=== PATIENT | female | born 1970 | race Caucasian/White ===

== ENCOUNTER → 2018-07-11 | Outpatient (CLI) | payer BC ==
[~2018-07-11] MED LIST: ACCOLATE10 MG PO; ANAPROX DS550 MG PO; AUGMENTIN 875 M1 TAB PO; BUSPAR5 MG PO; FLEXERIL10 MG PO; MOTRIN600 MG PO; PYRIDIUM100 MG PO
[2018-07-11 10:26] LABS: BILIRUBIN NEGATIVE (NEGATIVE); BLOOD 1+ (NEGATIVE); CLARITY SL CLOUDY (CLEAR); COLOR YELLOW (YELLOW); GLUCOSE NEGATIVE (NEGATIVE); KETONE NEGATIVE (NEGATIVE); LEUKO ESTERASE 1+ (NEGATIVE); NITRITE NEGATIVE (NEGATIVE); SPECIFIC GRAVITY 1.015 (1.005-1.030); UROBILINOGEN 0.2 E.U./dl (0.2-1.0)
[2018-07-11 10:34] LABS: BACTERIA 1+; EPITHELIAL CELLS TNTC; MUCOUS 3+; WBC TNTC wbc/hpf (0-5)
== END | disposition home or self-care (01) ==
LOC: LAB 09:34
PROVIDERS: Internal Medicine
DX: R82.71 Bacteriuria (principal)

== ENCOUNTER → 2018-08-01 | Outpatient (CLI) | payer BC | END | disposition home or self-care (01) | LOC: RAD 13:01 | DX: R07.81 Pleurodynia (principal); R05 Cough ==

== ENCOUNTER → 2019-01-26 | Outpatient (CLI) | payer BC ==
[2019-01-26 12:01] LABS: BILIRUBIN NEGATIVE (NEGATIVE); BLOOD 2+ (NEGATIVE); CLARITY SL CLOUDY (CLEAR); COLOR YELLOW (YELLOW); GLUCOSE NEGATIVE (NEGATIVE); KETONE NEGATIVE (NEGATIVE); LEUKO ESTERASE NEGATIVE (NEGATIVE); NITRITE NEGATIVE (NEGATIVE); SPECIFIC GRAVITY 1.015 (1.005-1.030); UROBILINOGEN 0.2 E.U./dl (0.2-1.0)
[2019-01-26 12:10] LABS: BASO % 0.9 % (0.0-1.0); EOS # 0.4 10*3/uL (0.0-0.4); EOS % 7.7 % (1.0-4.0); HEMATOCRIT 40.3 % (37.0-47.0); HEMOGLOBIN 13.1 g/dl (12.0-16.0); LYMPH # 1.5 10*3/uL (1.3-4.4); MEAN CELL VOLUME 92.2 fl (81.0-99.0); MEAN CORPUSCULAR HGB CONC 32.5 g/dl (33.0-37.0); MEAN PLATELET VOLUME 10.5 fl (9.6-12.3); MONO # 0.7 10*3/uL (0.1-1.0); MONO % 14.8 % (3.0-9.0); NEUT % 44.6 % (47.0-73.0); PLATELET COUNT AUTOMATED 178 10*3/uL (130-400); RED BLOOD COUNT 4.37 10*6/uL (4.10-5.10); RED CELL DISTRI WIDTH 12.8 % (0-14.5); WHITE BLOOD COUNT 4.5 10*3/uL (4.8-10.8)
[2019-01-26 12:11] LABS: BACTERIA TRACE; MUCOUS 2+; RBC TNTC rbc/hpf (0-2); WBC 0-2 wbc/hpf (0-5)
[2019-01-26 12:21] LABS: BUN 8 mg/dl (7-24); CHLORIDE 106 mmol/L (98-107); CREATININE 0.77 mg/dL (0.55-1.02); POTASSIUM 3.7 mmol/L (3.5-5.1); SODIUM 140 mmol/L (136-145)
== END | disposition home or self-care (01) ==
LOC: LAB 11:30
PROVIDERS: Internal Medicine
DX: R53.81 Other malaise (principal)

== ENCOUNTER → 2020-08-19 | Outpatient (CLI) | payer BC | END | disposition home or self-care (01) | LOC: LAB 12:05 | PROVIDERS: ATTEND Urology | DX: N20.0 Calculus of kidney (principal) ==

== ENCOUNTER → 2020-08-26 | Outpatient (CLI) | payer BC ==
[~2020-08-26] MED LIST changes: +FLOMAX0.4 MG PO; +METHOCARBAMOL500 M1 PO; +NAPROXEN250 MG PO; +PERCOCET 5-3251 EACH PO; +ZOFRAN4 MG PO
[2020-09-05 22:06] LABS: BUSHITE 2.32 ratio (0.00-3.00); CALCIUM OXALATE 2.94 ratio (0.00-6.00); CALCIUM, URINE 72.8 mg/24 hr (100.0-300.0); CALCIUM, URINE 9.1 mg/dL (Not Estab.); CITRIC ACID (CITRATE) 392 mg/24 hr (320-1240); CREATININE, URINE 105.5 mg/dL (Not Estab.); MAGNESIUM, URINE 4.5 mg/dL (Not Estab.); MONOSODIUM URATE 7.57 ratio (0.00-4.00); OSMOLALITY, URINE 714 (300-900); SODIUM, URINE 131 (39-258); SODIUM, URINE 164 mmol/L (Not Estab.); URIC ACID 0.37 ratio (0.00-1.20); pH 24 HR URINE 6.7 (.)
== END | disposition home or self-care (01) ==
LOC: LAB 13:52
PROVIDERS: ATTEND Urology
DX: N20.0 Calculus of kidney (principal)

== ENCOUNTER 2020-09-12 10:24 | Emergency (ER) | payer BC ==
[~2020-09-12] VITALS: Ht 160 cm; Wt 55.8 kg
[~2020-09-12 10:24] MED LIST changes: -FLOMAX0.4 MG PO; -METHOCARBAMOL500 M1 PO; -NAPROXEN250 MG PO; -PERCOCET 5-3251 EACH PO; -ZOFRAN4 MG PO
[2020-09-12 10:30] VITALS: BP 134/71
[2020-09-12 11:01] LABS: BILIRUBIN Negative (Negative); BLOOD 3+ (Negative); CLARITY Turbid (Clear); COLOR Yellow (Yellow); GLUCOSE Negative (Negative); KETONE Trace (Negative); LEUKO ESTERASE Trace (Negative); NITRITE Negative (Negative); PH 5.5 (4.5-8.0)
[2020-09-12 11:10] LABS: BACTERIA 2+; EPITHELIAL CELLS TNTC; MUCOUS TRACE; RBC TNTC rbc/hpf (0-2)
[2020-09-12 11:43] LABS: BASO # 0.1 10*3/uL (0.0-0.1); BASO % 0.6 % (0.0-1.0); EOS # 0.1 10*3/uL (0.0-0.4); HEMATOCRIT 40.2 % (37.0-47.0); LYMPH % 11.7 % (27.0-41.0); MEAN CELL VOLUME 91.2 fl (81.0-99.0); MEAN CORPUSCULAR HGB 29.3 pg (27.0-31.0); MEAN CORPUSCULAR HGB CONC 32.1 g/dl (33.0-37.0); MEAN PLATELET VOLUME 10.4 fl (9.6-12.3); MONO # 0.5 10*3/uL (0.1-1.0); MONO % 5.8 % (3.0-9.0); NEUT # 6.6 10*3/uL (2.3-7.9); NEUT % 80.7 % (47.0-73.0); PLATELET COUNT AUTOMATED 176 10*3/uL (130-400); RED BLOOD COUNT 4.41 10*6/uL (4.10-5.10); RED CELL DISTRI WIDTH 12.4 % (0-14.5); WHITE BLOOD COUNT 8.2 10*3/uL (4.8-10.8)
[2020-09-12 11:54] LABS: BUN 11 mg/dl (7-24); CHLORIDE 106 mmol/L (98-107); CREATININE 0.77 mg/dL (0.55-1.02); POTASSIUM 3.5 mmol/L (3.5-5.1); SODIUM 135 mmol/L (136-145)
[2020-09-12] MEDS ORDERED: PERCOCET 5-3251 EACH PO ×2 (14:35→15:26)
[2020-09-12] MEDS ORDERED: FLOMAX0.4 MG PO ×2 (14:35→15:25)
[2020-09-12] MEDS ORDERED: ZOFRAN4 MG PO (14:35)
== END 2020-09-12 14:50 | disposition home or self-care (01) ==
LOC: ED 10:24
PROVIDERS: Internal Medicine
DX: N13.4 Hydroureter (principal); N20.0 Calculus of kidney

== ENCOUNTER 2020-10-02 01:34 | Emergency (ER) | payer OTHER, BC ==
[~2020-10-02] VITALS: Ht 154.9 cm; Wt 64.0 kg
[~2020-10-02 01:34] MED LIST changes: +FLOMAX0.4 MG PO; +PERCOCET 5-3251 EACH PO; +ZOFRAN4 MG PO
[2020-10-02 01:45] VITALS: BP 132/86
[2020-10-02] MEDS ORDERED: NAPROXEN250 MG PO (02:55)
[2020-10-02] MEDS ORDERED: METHOCARBAMOL500 M1 PO (02:55)
== END 2020-10-02 03:05 | disposition home or self-care (01) ==
LOC: ED 01:34
DX: S16.1XXA Strain of muscle, fascia and tendon at neck level, initial encounter (principal); S00.93XA Contusion of unspecified part of head, initial encounter; V89.2XXA Person injured in unspecified motor-vehicle accident, traffic, initial encounter; Y93.89 Activity, other specified; Y92.89 Other specified places as the place of occurrence of the external cause; Y99.8 Other external cause status

== ENCOUNTER → 2021-02-25 | Outpatient (CLI) | payer BC ==
[~2021-02-25] MED LIST changes: +METHOCARBAMOL500 M1 PO; +NAPROXEN250 MG PO
== END | disposition home or self-care (01) ==
LOC: US 02-19 08:30
PROVIDERS: ATTEND Internal Medicine
DX: R19.00 Intra-abdominal and pelvic swelling, mass and lump, unspecified site (principal)

== ENCOUNTER → 2021-03-07 | Outpatient (CLI) | payer BC | END | disposition home or self-care (01) | LOC: LAB 03-06 10:07 | PROVIDERS: ATTEND Urology | DX: R31.9 Hematuria, unspecified (principal) ==

== ENCOUNTER → 2021-07-09 | Outpatient (CLI) | payer BC | END | disposition home or self-care (01) | LOC: RAD 09:41 | PROVIDERS: ATTEND Internal Medicine | DX: R06.02 Shortness of breath (principal); M41.84 Other forms of scoliosis, thoracic region; Z98.82 Breast implant status ==

== ENCOUNTER 2021-08-19 12:42 | Emergency (ER) | payer BC ==
[~2021-08-19] VITALS: Ht 160 cm; Wt 56.7 kg
[2021-08-19 12:55] VITALS: BP 119/68
[2021-08-19 15:57] LABS: BASO # 0.1 10*3/uL (0.0-0.1); BASO % 1.1 % (0.0-1.0); EOS # 0.1 10*3/uL (0.0-0.4); EOS % 2.7 % (1.0-4.0); HEMATOCRIT 39.1 % (37.0-47.0); LYMPH # 1.4 10*3/uL (1.3-4.4); LYMPH % 26.8 % (27.0-41.0); MEAN CELL VOLUME 88.9 fl (81.0-99.0); MEAN CORPUSCULAR HGB 28.9 pg (27.0-31.0); MEAN CORPUSCULAR HGB CONC 32.5 g/dl (33.0-37.0); MEAN PLATELET VOLUME 9.9 fl (9.6-12.3); MONO # 0.6 10*3/uL (0.1-1.0); MONO % 11.2 % (3.0-9.0); NEUT # 3.1 10*3/uL (2.3-7.9); PLATELET COUNT AUTOMATED 189 10*3/uL (130-400); RED CELL DISTRI WIDTH 11.9 % (0-14.5); WHITE BLOOD COUNT 5.3 10*3/uL (4.8-10.8)
[2021-08-19 16:12] LABS: ACT PARTIAL THROMBO TIME 26.5 SECONDS (20.0-32.1); ALKALINE PHOSPHATASE 83 U/L (45-117); BUN 9 mg/dl (7-24); CHLORIDE 108 mmol/L (98-107); CREATININE 0.79 mg/dL (0.55-1.02); LIPASE 250 U/L (73-393); POTASSIUM 3.6 mmol/L (3.5-5.1); SGOT/AST 16 IU/L (3-35); SGPT/ALT 17 U/L (12-78); SODIUM 143 mmol/L (136-145); TOTAL PROTEIN 7.2 gm/dL (6.4-8.2)
== END 2021-08-19 21:46 | disposition home or self-care (01) ==
LOC: ED 12:42
PROVIDERS: Emergency Medicine
DX: R07.9 Chest pain, unspecified (principal)

== ENCOUNTER → 2021-11-04 | Outpatient (CLI) | payer BC | END | disposition home or self-care (01) | LOC: CANPRECLI → RESCLI 11-03 02:52 | PROVIDERS: ATTEND Internal Medicine | DX: K21.9 Gastro-esophageal reflux disease without esophagitis (principal); Z00.00 Encounter for general adult medical examination without abnormal findings; F41.9 Anxiety disorder, unspecified; L81.9 Disorder of pigmentation, unspecified; N20.0 Calculus of kidney; Z78.0 Asymptomatic menopausal state; R52 Pain, unspecified; Z98.890 Other specified postprocedural states; Z98.82 Breast implant status; Z79.899 Other long term (current) drug therapy ==

== ENCOUNTER → 2022-03-25 | Outpatient (CLI) | payer BC ==
[2022-03-25 11:38] LABS: BASO % 0.8 % (0.0-1.0); EOS # 0.1 10*3/uL (0.0-0.4); EOS % 2.4 % (1.0-4.0); HEMATOCRIT 39.4 % (37.0-47.0); LYMPH # 1.4 10*3/uL (1.3-4.4); LYMPH % 35.6 % (27.0-41.0); MEAN CELL VOLUME 90.6 fl (81.0-99.0); MEAN PLATELET VOLUME 10.3 fl (9.6-12.3); MONO # 0.4 10*3/uL (0.1-1.0); MONO % 11.3 % (3.0-9.0); NEUT # 1.9 10*3/uL (2.3-7.9); NEUT % 49.6 % (47.0-73.0); PLATELET COUNT AUTOMATED 173 10*3/uL (130-400); RED BLOOD COUNT 4.35 10*6/uL (4.10-5.10); RED CELL DISTRI WIDTH 12.7 % (0-14.5); WHITE BLOOD COUNT 3.8 10*3/uL (4.8-10.8)
[2022-03-25 11:55] LABS: ALKALINE PHOSPHATASE 64 U/L (46-116); BUN 12 mg/dl (9-23); CHLORIDE 103 mmol/L (98-107); CHOLESTEROL 163 mg/dL (<200); LDL CHOLESTEROL 88 mg/dL (9-159); POTASSIUM 4.1 mmol/L (3.4-5.1); SGPT/ALT 36 U/L (10-49); THYROID STIM HORMONE (HS) 1.495 uIU/ml (0.550-4.780); TOTAL PROTEIN 7.2 gm/dL (6.0-8.0); TRIGLYCERIDES 86 mg/dl (<150)
[2022-03-25 12:45] LABS: VITAMIN D, 25-HYDROXY 55.7 ng/mL (30-100)
== END | disposition home or self-care (01) ==
LOC: LAB 11:05
PROVIDERS: ATTEND Internal Medicine
DX: Z13.89 Encounter for screening for other disorder (principal); Z13.820 Encounter for screening for osteoporosis; Z13.0 Encounter for screening for diseases of the blood and blood-forming organs and certain disorders involving the immune mechanism; Z13.1 Encounter for screening for diabetes mellitus; Z13.6 Encounter for screening for cardiovascular disorders; Z13.29 Encounter for screening for other suspected endocrine disorder; E55.9 Vitamin D deficiency, unspecified

== ENCOUNTER → 2022-04-11 | Outpatient (CLI) | payer BC | END | disposition home or self-care (01) | LOC: US 02:33 | PROVIDERS: ATTEND Internal Medicine | DX: N20.0 Calculus of kidney (principal) ==

== ENCOUNTER → 2022-10-12 | Outpatient (CLI) | payer BC ==
[2022-10-14 11:07] LABS: ALTERNARIA ALTERNATA, IGE <0.10 kU/L (Class 0); AMERICAN ELM, IGE <0.10 kU/L (Class 0); ASPERGILLUS FUMIGATU, IGE <0.10 kU/L (Class 0); BERMUDA GRASS, IGE <0.10 kU/L (Class 0); BIRCH, COMMON SILVER IGE <0.10 kU/L (Class 0); CLADOSPORIUM HERBARU, IGE <0.10 kU/L (Class 0); D FARINAE MITE <0.10 kU/L (Class 0); D PTERONYSSINUS <0.10 kU/L (Class 0); DOG DANDER, IGE <0.10 kU/L (Class 0); MAPLE LEAF SYCAMORE, IGE <0.10 kU/L (Class 0); MAPLE/BOX ELDER, IGE <0.10 kU/L (Class 0); MOUSE URINE IGE <0.10 kU/L (Class 0); PENICILLIUM CHRYSOGENUM, IGE <0.10 kU/L (Class 0); ROUGH PIGWEED, IGE <0.10 kU/L (Class 0); SHEEP SORREL (DOCK), IGE <0.10 kU/L (Class 0); SHORT RAGWEED, IGE <0.10 kU/L (Class 0); TIMOTHY, IGE <0.10 kU/L (Class 0); WALNUT TREE, IGE <0.10 kU/L (Class 0); WHITE ASH, IGE <0.10 kU/L (Class 0); WHITE MULBERRY, IGE <0.10 kU/L (Class 0); WHITE OAK, IGE <0.10 kU/L (Class 0)
[2022-10-15 02:06] LABS: CODFISH, IGE <0.10 kU/L (Class 0); EGG WHITE, IGE <0.10 kU/L (Class 0); MILK (COW), IGE <0.10 kU/L (Class 0); PEANUT, IGE <0.10 kU/L (Class 0); SOYBEAN, IGE <0.10 kU/L (Class 0); WHEAT, IGE <0.10 kU/L (Class 0)
== END | disposition home or self-care (01) ==
LOC: LAB 09:39
PROVIDERS: ATTEND Specialist
DX: J30.1 Allergic rhinitis due to pollen (principal)

== ENCOUNTER → 2022-10-29 | Outpatient (CLI) | payer BC | END | disposition home or self-care (01) | LOC: CT 08:00 | PROVIDERS: ATTEND Specialist | DX: R51.9 Headache, unspecified (principal) ==

== ENCOUNTER → 2022-11-17 | Outpatient (CLI) | payer BC | END | disposition home or self-care (01) | LOC: RESCLI 01:32 | PROVIDERS: ATTEND Internal Medicine | DX: K21.9 Gastro-esophageal reflux disease without esophagitis (principal); L81.9 Disorder of pigmentation, unspecified; F41.9 Anxiety disorder, unspecified; R51.9 Headache, unspecified; Z98.890 Other specified postprocedural states; Z79.899 Other long term (current) drug therapy ==

== ENCOUNTER → 2023-08-04 | Outpatient (CLI) | payer BC ==
[2023-08-04 17:09] LABS: TOTAL PROTEIN 6.9 gm/dL (6.0-8.0)
== END ==
LOC: LAB 16:28
PROVIDERS: ATTEND Internal Medicine
DX: R94.5 Abnormal results of liver function studies (principal)

== ENCOUNTER → 2023-09-20 | Outpatient (CLI) | payer BC | END | disposition home or self-care (01) | LOC: US 16:26 | PROVIDERS: ATTEND Internal Medicine | DX: N28.1 Cyst of kidney, acquired (principal); N20.0 Calculus of kidney ==

== ENCOUNTER 2023-09-26 20:04 | Emergency (ER) | payer BC ==
[~2023-09-26] VITALS: Ht 160 cm; Wt 54.4 kg
[2023-09-26 20:22] VITALS: BP 126/76
[2023-09-26 20:40] LABS: BILIRUBIN Negative (Negative); BLOOD 3+ (Negative); CLARITY Clear (Clear); COLOR Yellow (Yellow); GLUCOSE Negative (Negative); KETONE 1+ (Negative); LEUKO ESTERASE 2+ (Negative); NITRITE Negative (Negative); UROBILINOGEN 0.2 E.U./dl (0.0-1.0)
[2023-09-26 20:51] LABS: BACTERIA TRACE; MUCOUS 1+; RBC 41-50 rbc/hpf (0-2)
[2023-09-26] MEDS ORDERED: HYDROmorphONE Hydrochloride 0.5 MG/0.5 ML SYRINGE IV ONE (21:25)
[2023-09-26] MEDS ORDERED: Ondansetron Hydrochloride 4 MG/2 ML VIAL IV ONE (21:25)
[2023-09-26 21:35] LABS: BASO % 0.6 % (0.0-1.0); EOS % 0.4 % (1.0-4.0); HEMATOCRIT 36.1 % (37.0-47.0); LYMPH # 0.9 10*3/uL (1.3-4.4); LYMPH % 12.2 % (27.0-41.0); MEAN CELL VOLUME 89.8 fl (81.0-99.0); MEAN CORPUSCULAR HGB 29.9 pg (27.0-31.0); MEAN CORPUSCULAR HGB CONC 33.2 g/dl (33.0-37.0); MEAN PLATELET VOLUME 9.7 fl (9.6-12.3); MONO # 0.7 10*3/uL (0.1-1.0); NEUT # 5.6 10*3/uL (2.3-7.9); NEUT % 77.5 % (47.0-73.0); PLATELET COUNT AUTOMATED 159 10*3/uL (130-400); RED BLOOD COUNT 4.02 10*6/uL (4.10-5.10); RED CELL DISTRI WIDTH 12.2 % (0-14.5); WHITE BLOOD COUNT 7.2 10*3/uL (4.8-10.8)
[2023-09-26 21:55] LABS: BUN 11 mg/dl (9-23); CHLORIDE 103 mmol/L (98-107); POTASSIUM 3.9 mmol/L (3.4-5.1)
[2023-09-26] MEDS ORDERED: Ketorolac Tromethamine 30 MG/ML VIAL IV ONE (22:15)
[2023-09-27] MEDS ORDERED: Ondansetron Hydrochloride 4 MG TAB SL ONE ×2 (00:30→23:55)
[2023-09-27] MEDS ORDERED: Acetaminophen/Oxycodone 5 MG/325 MG TABLET PO ONE (00:30)
[2023-09-27] MEDS ORDERED: Acetaminophen/Hydrocodone ES 7.5/325 tablet PO ONE (23:55)
== END 2023-09-27 00:45 | disposition home or self-care (01) ==
LOC: ED 20:04
PROVIDERS: Internal Medicine
DX: N13.2 Hydronephrosis with renal and ureteral calculous obstruction (principal); N13.4 Hydroureter; Z98.890 Other specified postprocedural states

== ENCOUNTER → 2023-12-21 | Outpatient (CLI) | payer BC ==
[2023-12-21 12:00] LABS: BASO % 0.5 % (0.0-1.0); EOS # 0.1 10*3/uL (0.0-0.4); EOS % 3.6 % (1.0-4.0); HEMATOCRIT 35.6 % (37.0-47.0); MEAN CORPUSCULAR HGB 28.9 pg (27.0-31.0); MEAN CORPUSCULAR HGB CONC 31.7 g/dl (33.0-37.0); MEAN PLATELET VOLUME 9.5 fl (9.6-12.3); MONO # 0.4 10*3/uL (0.1-1.0); MONO % 10.3 % (3.0-9.0); NEUT % 50.4 % (47.0-73.0); PLATELET COUNT AUTOMATED 153 10*3/uL (130-400); RED BLOOD COUNT 3.91 10*6/uL (4.10-5.10); RED CELL DISTRI WIDTH 12.1 % (0-14.5); WHITE BLOOD COUNT 3.9 10*3/uL (4.8-10.8)
[2023-12-21 12:43] LABS: ALKALINE PHOSPHATASE 77 U/L (46-116); BUN 10 mg/dl (9-23); CHLORIDE 106 mmol/L (98-107); CHOLESTEROL 181 mg/dL (<200); FREE T4 1.01 ng/dl (0.89-1.76); LDL CHOLESTEROL 100 mg/dL (9-159); POTASSIUM 3.7 mmol/L (3.4-5.1); SGPT/ALT 10 U/L (5-49); TOTAL PROTEIN 6.7 gm/dL (6.0-8.0); TRIGLYCERIDES 95 mg/dl (<150)
[2023-12-21 12:43] LABS: VITAMIN D, 25-HYDROXY 38.6 ng/mL (30-100)
== END | disposition home or self-care (01) ==
LOC: LAB 11:26
PROVIDERS: ATTEND Internal Medicine
DX: R53.83 Other fatigue (principal); E53.9 Vitamin B deficiency, unspecified; E55.9 Vitamin D deficiency, unspecified

== ENCOUNTER → 2024-01-05 | Outpatient (CLI) | payer BC ==
[2024-01-05 13:00] LABS: EOS # 0.1 10*3/uL (0.0-0.4); EOS % 3.5 % (1.0-4.0); HEMATOCRIT 37.9 % (37.0-47.0); MEAN CELL VOLUME 89.6 fl (81.0-99.0); MEAN CORPUSCULAR HGB 28.6 pg (27.0-31.0); MEAN CORPUSCULAR HGB CONC 31.9 g/dl (33.0-37.0); MEAN PLATELET VOLUME 9.9 fl (9.6-12.3); MONO # 0.5 10*3/uL (0.1-1.0); MONO % 11.2 % (3.0-9.0); NEUT # 2.1 10*3/uL (2.3-7.9); NEUT % 51.2 % (47.0-73.0); PLATELET COUNT AUTOMATED 158 10*3/uL (130-400); RED BLOOD COUNT 4.23 10*6/uL (4.10-5.10); RED CELL DISTRI WIDTH 12.1 % (0-14.5)
[2024-01-05 13:45] LABS: ALKALINE PHOSPHATASE 83 U/L (46-116); BUN 11 mg/dl (9-23); CHLORIDE 104 mmol/L (98-107); CHOLESTEROL 197 mg/dL (<200); FREE T4 1.14 ng/dl (0.89-1.76); LDL CHOLESTEROL 108 mg/dL (9-159); SGPT/ALT 9 U/L (5-49); TOTAL PROTEIN 7.4 gm/dL (6.0-8.0); TRIGLYCERIDES 97 mg/dl (<150)
== END | disposition home or self-care (01) ==
LOC: LAB 12:36
PROVIDERS: ATTEND Internal Medicine
DX: Z13.0 Encounter for screening for diseases of the blood and blood-forming organs and certain disorders involving the immune mechanism (principal); Z13.1 Encounter for screening for diabetes mellitus; Z13.21 Encounter for screening for nutritional disorder; Z13.220 Encounter for screening for lipoid disorders; Z13.228 Encounter for screening for other metabolic disorders; Z13.6 Encounter for screening for cardiovascular disorders; Z13.89 Encounter for screening for other disorder; E55.9 Vitamin D deficiency, unspecified; D51.9 Vitamin B12 deficiency anemia, unspecified; R79.0 Abnormal level of blood mineral

== ENCOUNTER → 2024-03-15 | Outpatient (CLI) | payer OTHER | END | disposition home or self-care (01) | LOC: RESCLI 09:10 | PROVIDERS: ATTEND Student in an Organized Health Care Education/Training Program | DX: R51.9 Headache, unspecified (principal); F41.9 Anxiety disorder, unspecified; L81.9 Disorder of pigmentation, unspecified; N20.0 Calculus of kidney; E55.9 Vitamin D deficiency, unspecified; K21.9 Gastro-esophageal reflux disease without esophagitis; L70.9 Acne, unspecified; M79.7 Fibromyalgia; Z79.899 Other long term (current) drug therapy; Z98.890 Other specified postprocedural states; Z88.8 Allergy status to other drugs, medicaments and biological substances ==

== ENCOUNTER → 2024-03-27 | Outpatient (CLI) | payer OTHER ==
[2024-03-28 11:06] LABS: ANTI-DSDNA ANTIBODIES <1 IU/mL (0-9)
== END | disposition home or self-care (01) ==
LOC: LAB 10:37
PROVIDERS: ATTEND Internal Medicine
DX: Z13.1 Encounter for screening for diabetes mellitus (principal); Z13.0 Encounter for screening for diseases of the blood and blood-forming organs and certain disorders involving the immune mechanism; Z13.21 Encounter for screening for nutritional disorder; Z13.220 Encounter for screening for lipoid disorders; Z13.228 Encounter for screening for other metabolic disorders; Z13.29 Encounter for screening for other suspected endocrine disorder; Z13.6 Encounter for screening for cardiovascular disorders; Z13.89 Encounter for screening for other disorder; R79.82 Elevated C-reactive protein (CRP); M79.10 Myalgia, unspecified site; M19.042 Primary osteoarthritis, left hand

== ENCOUNTER → 2024-05-03 | Outpatient (CLI) | payer OTHER | END | disposition home or self-care (01) | LOC: LAB 00:12 | PROVIDERS: ATTEND Internal Medicine | DX: R19.7 Diarrhea, unspecified (principal) ==

== ENCOUNTER → 2024-05-10 | Outpatient (CLI) | payer OTHER | END | disposition home or self-care (01) | LOC: US 05-06 03:10 | PROVIDERS: ATTEND Internal Medicine | DX: N13.2 Hydronephrosis with renal and ureteral calculous obstruction (principal); N28.1 Cyst of kidney, acquired ==

== ENCOUNTER → 2024-09-13 | Outpatient (CLI) | payer OTHER | END | disposition home or self-care (01) | LOC: LAB 08:49 | PROVIDERS: ATTEND Physician Assistant | DX: M54.6 Pain in thoracic spine (principal); M25.50 Pain in unspecified joint; M79.7 Fibromyalgia ==